=== PATIENT | female | born 1985 | race Caucasian/White ===

== ENCOUNTER 2017-05-03 06:10 | Day surgery (SDC) | payer BC ==
--- NOTE | 2017-05-02 18:30 | Pre-Procedure Note/Attestation ---
Pre-Procedure Note/Attestation Complete Prior to Procedure Planned Procedure: not applicable Procedure Narrative: Excision thyroglossal duct cyst Indications for Procedure Pre-Operative Diagnosis: Thyroglossal duct cyst getting larger Attestation I attest that I discussed the nature of the procedure; its benefits; risks and complications; and alternatives (and the risks and benefits of such alternatives ), prior to the procedure, with the patient (or the patient's legal healthcare representative). I attest that, if there was a reasonable possibility of needing a blood transfusion, the patient (or the patient's legal healthcare representative) was given the [facility] standardized written summary, pursuant to the [place] Blood Safety Act ([place] Health and Safety Code # 1645, as amended). I attest that I re-evaluated the patient just prior to the surgery and that there has been no change in the patient's H&P, MONA WILKINSON May 02, 2017 18:30
--- NOTE | 2017-05-02 18:47 | Brief Operative Note ---
Immediate Post Operative Note Operative Note Chief Complaint: Thyroglossal Duct Cyst Pre-op Diagnosis: Thyroglossal duct cyst getting larger Procedure: Excision Thyroglossal duct cyst Post-op Diagnosis: same as pre-op Surgeon: Mona Wilkinson Solid Waste Analyst: none Additional Surgeons: none Anesthesia: general Specimen: yes - Thyroglossal duct cyst Complications: none Condition: stable Fluids: D5LR Estimated Blood Loss: volume - 10cc Drains: none Packing: none Implant(s) used?: No MONA WILKINSON May 02, 2017 18:47
--- NOTE | 2017-05-02 18:54 | Discharge Instructions ---
Discharge Instructions Discharge Instructions Follow up with: Dr. Wilkinson next week Diet: regular, renal (80g protein, 2GM) Resume Normal Activity?: No Activity: light activity Pneumonia Vaccine: pt refused vaccine Influenza Vaccine (Dec to May): pt refused vaccine Follow Up Orders pt has printed instructions and medications given to her on 04/26/17 which we reviewed together. Return to Work/School on: May 16, 2017 Special Instructions ice to neck x 48 hours For Surgical Patients Dressing Care: keep dry and clean May shower: No Contact your physician for: bleeding, pain, tenderness, redness, swelling, yellowish discharge in the op. site, other For Congestive Heart Failure Reminder Report to your physician any weight gain of 5 pounds or more in one week. MONA WILKINSON May 02, 2017 18:54
[~2017-05-03] VITALS: Ht 154.9 cm; Wt 57.2 kg
[2017-05-03] VITALS (13 sets, daily range): BP systolic 79–116; BP diastolic 45–76
--- NOTE | 2017-05-03 01:45 | Pre-op HX & Phy Repo 2 SIG ---
DATE OF ADMISSION: 05/03/2017 SURGERY DATE: 05/03/2017. INDICATION FOR SURGERY: The patient is a 32-year-old female, who is having thyroglossal duct cyst removed because she has had recurrent enlargement and swelling of it. It is just to the right center of her neck. It has been imaged and has been noted in the thyroid bed separate from the cyst. PAST MEDICAL HISTORY: Remarkable for she is allergic to sulfa, otherwise denies other heart, liver, lung, kidney, tobacco, alcohol, chemical dependency issues. She has never been a smoker. Single, no children. 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 Denies alcohol and drugs. She does get exercise and takes supplements and vitamins. MEDICATIONS: She does have postop medications cephalexin and [place] and does take Gildess as a control pill. FAMILY HISTORY: Breast cancer and colon cancer. PHYSICAL EXAMINATION: GENERAL: The patient is 6 feet 1 inch, 120 pounds. VITAL SIGNS: Blood pressure when I last saw her was 120/80, temperature 98.6, pulse 73, respiratory rate 13, this was on 04/26/2017. HEENT: Head normocephalic. Eyes, PERRLA. EOMI. Lips, tongue, pharynx, normal. NECK: She has a mass just to the right of the midline just below the hyoid cartilage. HEART: Normal S1 and S2. No S3 or S4. No murmur, bruit, gallop, or rub. ABDOMEN: Soft and nontender. Normoactive bowel sounds. GENITOURINARY: Not done as she is followed regularly and it is not indicated for this procedure. EXTREMITIES: Grossly normal. NEUROLOGIC: Cranial nerves II through XII are grossly normal. ASSESSMENT: She is stable and a candidate for excision of thyroglossal duct cyst as an outpatient. PLAN: Thyroglossal duct cyst excision tomorrow. She has all her paperwork as far as pre and postop care which was discussed with her on 04/26/2017 in her possession. She has prescriptions for [place] and cephalexin to take after surgery. All risks, benefits, and alternatives as well as consents have been reviewed with the patient. Og Nelson M.D. DR: Jaylan JOB#: [id number] CC:
[~2017-05-03 06:10] MED LIST: ATIVAN1 MG ORAL; Bacitracin Oint 15gm Tube TOPIC ONE; Bupivacaine 0.25% Inj 30ml INJ ONE; CEPHALEXIN500 M1 ORAL; Dexamethasone 4mg/ml vial IVP ONE; KARIVA 28 DAY1 EACH PO; Lidocaine 1% Plain 30 ml INJ ONE; ZYRTEC10 MG ORAL; ceFAZolin sod 1 GM in NS 55 ML IV ONE
[2017-05-03] MEDS ORDERED: LR 1000ml ONE (07:30)
[2017-05-03] MEDS ORDERED: Dexamethasone 4mg/ml vial ONE (07:30)
[2017-05-03] MEDS ORDERED: fentaNYL 100 mcg/2 mL IV ONE (07:30)
[2017-05-03] MEDS ORDERED: Zemuron 50mg/5ml Inj IV ONE (07:30)
[2017-05-03] MEDS ORDERED: NS Irrig 1000ml ONE (07:30)
[2017-05-03] MEDS ORDERED: Sterile Water Irrig 1000ml IRRIG ONE (07:30)
[2017-05-03] MEDS ORDERED: Propofol 200mg/20ml IV ONE (07:30)
[2017-05-03] MEDS ORDERED: Hydrogen Peroxide 473ml Bottle TOPIC ONE (07:54)
--- NOTE | 2017-05-03 08:16 | Anethesia Preoperative Eval ---
Anesthesia Pre-op PMH/ROS General Date of Evaluation: May 03, 2017 Time of Evaluation: 06:30 Anesthesiologist: jacky ASA Score: ASA 1 Mallampati Score Class I : Soft palate, uvula, fauces, pillars visible Class II: Soft palate, uvula, fauces visible Class III: Soft palate, base of uvula visible Class IV: Only hard plate visible Mallampati Classification: Class I Anesthesia History: none Allergies: Coded Allergies: SULFA (SULFONAMIDE ANTIBIOTICS) (Verified Allergy, Severe, HIGH FEVER, SWELLING IN THE FACE, RED PATCHES WHOLE BODY , 05/03/17) Anesthesia Pre-op Phys. Exam Physician Exam Last Vital Signs Date Time Temp Pulse Resp B/P (MAP) Pulse Ox O2 Delivery O2 Flow Rate FiO2 05/03/17 07:00 98.0 71 18 116/76 99 Room Air Airway Exam Mallampati Score: Class I Anesthesia Pre-op A/P Labs Urine Test Test 05/03/17 06:25 Urine HCG, Qualitative Negative Sulma Shepard MD May 03, 2017 08:16
[2017-05-03] MEDS ORDERED: Ketorolac 30mg Inj IV PRN (08:30)
[2017-05-03] MEDS ORDERED: fentaNYL 100 mcg/2 mL IV PRN (08:30)
--- NOTE | 2017-05-03 09:32 | Immediate Post-Op Evaluation ---
Immediate Post-Op Evalulation Immediate Post-Op Evalulation Procedure: thyroglossal cyst excision Date of Evaluation: May 03, 2017 Time of Evaluation: 09:32 Nausea: No Vomiting: No Sulma Shepard MD May 03, 2017 09:32
[2017-05-03] MEDS ORDERED: Norco 5mg/325mg tab ORAL PRN (17:00)
[2017-05-03] MEDS ORDERED: HYDROmorphone 1mg/ml Carpuject SUBQ PRN (17:00)
--- NOTE | 2017-05-03 22:15 | Operative Note - Dictated ---
DATE OF OPERATION: 05/03/2017 SURGEON: Og Nelson M.D. WORKFORCE MANAGER: None. ANESTHESIOLOGIST: Dr. Shepard. ANESTHESIA: Oral endotracheal as well as 5 mL of 1% lidocaine and 5 mL of 0.5% Marcaine and 1 mL of 1:100,000 epinephrine. PREOPERATIVE DIAGNOSIS: Thyroglossal duct cyst noted on scan with noted that the thyroid within normal position. POSTOPERATIVE DIAGNOSIS: Thyroglossal duct cyst noted on scan with noted that the thyroid within normal position. FINDINGS: A cyst with a kumar fluid inside it. It extended underneath the hyoid about quarter of an inch towards the base of tongue. PROCEDURE: Excision of thyroglossal duct cyst. TECHNIQUE: The patient was prepped and draped in the usual manner. Time-out was performed. All agreed with the equipment indicated and the procedure to be done. The patient had received preop antibiotic and steroid. Incision was made in the premarked line at a fold just below the hyoid, midline to little bit of the right, an inch and half long. This was done with a 15 blade taken down to platysma. Electrocautery at a setting of 12 to 14 was utilized to control any bleeding spots. I then was able to divide the platysma, pulled them to the side with [place] and exposed the strap muscles. Strap muscles were then divided midline and I was able to identify the cyst. Cyst was meticulously dissected from the anterior to posterior inferior direction with a small [place]. This was then followed to the hyoid where the tract went under the hyoid. At this point, the hyoid was cleaned with a small [place] elevator and a bone cutter was utilized to cut the hyoid. The tract was followed for about another quarter inch where it disappeared. At this point, I took a right angle, clamped, passed what was visible of the tract. Cut this cyst off and was sent for permanent section. I then tied the area off with a 4-0 silk. This was done without difficulty. Upon releasing this, the area was checked for any bleeding. There appeared to be none. I then irrigated with hydrogen peroxide and water. I then let it sit another 4-5 minutes to make sure there was no bleeding that was unseen. I then irrigated with a straight water, again did not see anything suspicious. I then proceeded to close in four layers with a 4-0 Vicryl from over the hyoid, then the strap muscles and subcutaneous. The skin was approximated with a running 6-0 Prolene horizontal mattress suture. Glue, Steri-Strips were placed. Small Telfa and Tegaderm placed over this. I did not feel a drain was indicated and significant bleeding was very clean at the end of the procedure. Sponge and needle count was correct. Estimated blood loss was 10, may be 15 mL. Counts, none. Drains, none. The patient was awake and extubated, breathing well on her own in the operating room prior to transfer to the recovery room. I then saw her 15-20 minutes later, she was resting comfortably. Og Nelson M.D. DR: SARAH JOB#: [id number] CC:
== END 2017-05-03 11:00 | disposition home or self-care (01) ==
LOC: SUR 06:10
DX: Q89.2 Congenital malformations of other endocrine glands (principal); Z88.2 Allergy status to sulfonamides; Z80.3 Family history of malignant neoplasm of breast; Z80.0 Family history of malignant neoplasm of digestive organs; Z79.3 Long term (current) use of hormonal contraceptives
CPT/HCPCS: 60280; 81025; J0690; J1100; J2001; J2704; J3010; J3490; J7120; 94003; 94150